=== PATIENT | male | born 1990 | race Caucasian/White ===

== ENCOUNTER → 2021-07-29 | Outpatient (CLI) | payer OTHER | LOC: COL.RAD 08:55 | DX: Z02.71 Encounter for disability determination (principal); M47.816 Spondylosis without myelopathy or radiculopathy, lumbar region ==

== ENCOUNTER → 2021-12-21 | Outpatient (CLI) | payer SELFPAY | LOC: COL.RAD 07:30 | DX: M47.816 Spondylosis without myelopathy or radiculopathy, lumbar region (principal); M89.38 Hypertrophy of bone, other site ==